=== PATIENT | female | born 1970 | race Two or more races ===

== ENCOUNTER → 2016-11-21 | Outpatient (REF) | payer OTHER | LOC: M LAB REF 17:10 | PROVIDERS: ATTEND Obstetrics & Gynecology | DX: Z12.4 Encounter for screening for malignant neoplasm of cervix (principal) ==

== ENCOUNTER → 2017-01-23 | Outpatient (CLI) | payer OTHER ==
--- NOTE | 2017-01-23 19:25 | REP ---
Right foot four views : There is no fracture or dislocation. Mineralization and joint spaces are normal. There are no calcifications or foreign bodies. Impression: Negative right foot . Signed by Paul Diaz MD 01/23/2017 07:16 P
== END ==
LOC: M LRY 18:41
PROVIDERS: ATTEND Physician Assistant
DX: M79.671 Pain in right foot (principal)
CPT/HCPCS: 73630; G0463

== ENCOUNTER → 2017-11-24 | Outpatient (REF) | payer OTHER | LOC: M LAB REF 10:19 | DX: Z01.419 Encounter for gynecological examination (general) (routine) without abnormal findings (principal); R85.610 Atypical squamous cells of undetermined significance on cytologic smear of anus (ASC-US); Z11.51 Encounter for screening for human papillomavirus (HPV) | CPT/HCPCS: G0123 ==

== ENCOUNTER → 2017-12-04 | Outpatient (CLI) | payer OTHER | LOC: M SMT 07:57 | DX: E06.9 Thyroiditis, unspecified (principal) | CPT/HCPCS: 76536 ==

== ENCOUNTER → 2019-06-07 | Outpatient (REF) | payer OTHER ==
[~2019-06-07] MED LIST: GUAI100S51 PO; TESS100C PO; VENTAER IN
[2019-06-07 15:13] LABS: CHLAMYDIA DNA AMPLIFICATION NEGATIVE (NEGATIVE); GC DNA AMPLIFICATION NEGATIVE (NEGATIVE)
== END ==
LOC: M LAB REF 13:30
PROVIDERS: ATTEND Physician Assistant
DX: Z12.4 Encounter for screening for malignant neoplasm of cervix (principal)